=== PATIENT | male | born 1970 | race Caucasian/White ===

== ENCOUNTER 2016-06-29 16:48 | Observation (INO) | payer OTHER ==
[2016-06-29] MEDS ORDERED: NS 1,000 ML IV ONE ×2 (17:08)
[2016-06-29] MEDS ORDERED: ONDANSETRON 4 MG/2 ML VIAL IVP ONE (17:08)
[2016-06-29 17:31] LABS: % IMMATURE GRANULYOCYTES 0.3 % (0.0-1.1); ABSOLUTE IMMATURE GRANULOCYTES 0.05 10^3/uL (0.00-0.10); ADD DIFF? NO; ADD MORPH? NO; ADD SCAN? NO; ATYPICAL LYMPHOCYTE FLAG 0 (0-99); FRAGMENT RBC FLAG 0 (0-99); HEMATOCRIT 41.3 % (40.0-51.0); HEMOGLOBIN 14.7 g/dL (13.7-17.5); LEFT SHIFT FLG 0 (0-99); LIPEMIA HEMOLYSIS FLAG 90 (0-99); MEAN CELL HEMOGLOBIN CONCENTR. 35.6 g/dL (32.4-36.7); MEAN PLATELET VOLUME 10.5 fL (8.7-11.7); PLATELET CLUMPS FLAG 20 (0-99); PLATELET COUNT 208 10^3/uL (150-400); RED BLOOD CELL COUNT 4.59 10^6/uL (4.40-6.38)
[2016-06-29] MEDS ORDERED: IOPAMIDOL (ISOVUE-300) 100 ML BTL ONE (17:31)
[2016-06-29 17:45] LABS: ALANINE AMINOTRANSFERASE 35 IU/L (21-72); ALBUMIN 4.1 g/dL (3.5-5.0); ALKALINE PHOSPHATASE 66 IU/L (38-126); ANION GAP 14 mEq/L (8-16); ASPARTATE AMINOTRANSFERASE 17 IU/L (17-59); BILIRUBIN,TOTAL 0.9 mg/dL (0.1-1.4); BILIRUBIN-CONJUGATED 0.3 mg/dL (0.0-0.5); BILIRUBIN-UNCONJUGATED 0.6 mg/dL (0.0-1.1); CALCIUM 9.9 mg/dL (8.5-10.4); CARBON DIOXIDE 25 mEq/l (22-31); CHLORIDE 102 mEq/L (97-110); GLOMERULAR FILTRATION RATE > 60; GLUCOSE 104 mg/dL (70-100); POTASSIUM 3.7 mEq/L (3.5-5.2); SODIUM 141 mEq/L (134-144); TOTAL PROTEIN 7.2 g/dL (6.3-8.2)
--- NOTE | 2016-06-29 18:02 | EDPHY ---
H & P Constitutional: Initial Vital Signs Temperature (C) 36.9 C 06/29/16 16:50 Heart Rate 90 06/29/16 16:50 Respiratory Rate 20 06/29/16 16:50 Blood Pressure 120/80 06/29/16 16:50 O2 Sat (%) 90 L 06/29/16 16:50 O2 Delivery Mode Room Air O2 (L/minute) 2 Allergies/Adverse Reactions: No Known Allergies Allergy (Unverified 06/29/16 17:22) Home Medications: Medication Instructions Recorded Another Blood Pressure Med 06/29/16 Hydrocodone/APAP 5/325 [[place] 1 - 2 tab PO Q4HRS PRN #30 tab 06/29/16 5/325 (*)] Lisinopril 06/29/16 Magnesium 06/29/16 Medical Decision Making - Diagnostics Imaging Results: Imaging Impressions Abdomen CT 06/29/16 17:18 Impression: 1. Acute appendicitis with appendicolith and thickening up to 14 mm. 2. Nonobstructive left nephrolithiasis. 3. Right renal cysts. 4. No drainable abscess, pneumoperitoneum or bowel obstruction. Findings and recommendations discussed with Emergency Department physician, Isidro Barriga MD at 18:43 hour, 06/29/2016. Final report concurs with initial preliminary interpretation. Imaging: Discussed imaging studies w/ maintenance director Radiologist ED Course/Re-evaluation: CHIEF COMPLAINT: Abdominal pain HISTORY OF PRESENT ILLNESS: This patient is a healthy 45 year old male arriving with his family complaining of worsening lower right quadrant abdominal pain onset this morning around 3: 00am. He states the pain worsened around 12:00pm today following physical work around the house. He endorses associated nausea. He took Pepto-Bismol and Tums with no relief of symptoms. He denies history of abdominal surgery, vomiting, changes in urinary or bowel habits, or other associated symptoms. REVIEW OF SYSTEMS: A 10 point review of systems was performed and is negative with the exception of the elements mentioned in the history of present illness. PHYSICAL EXAM: General Appearance: Alert, well hydrated, appropriate, and non-toxic appearing. Head: Atraumatic without scalp tenderness or obvious injury Eyes: Pupils equal, round, reactive to light and accommodation, EOMI, no trauma , no injection. Ears: Clear bilaterally, no perforation, normal landmarks Nose: Atraumatic, no rhinorrhea, clear. Throat: There is no erythema or exudates, no lesions, normal tonsils, mucus membranes moist. Neck: Supple, 2+ carotid upstroke, non-tender, no lymphadenopathy. Respiratory: No retractions, no distress, no wheezes, and no accessory muscle use. Lungs are clear to auscultation bilaterally. Cardiovascular: Regular rate and rhythm, no murmurs, rubs, or gallops. Bilateral carotid, radial, dorsalis pedis, and posterior tibial pulses intact. Good capillary refill all extremities. Gastrointestinal: Tenderness to lower right quadrant. Abdomen is soft, non- distended with no masses, no rebound, no peritoneal signs. Musculoskeletal: Normal active ROM of all extremities, atraumatic. Neurological: Alert, appropriate, and interactive. The patient has normal DTRs and non-focal cranial nerves, motor, sensory, and cerebellar exam. Skin: No rashes, good turgor, no nodules on palpation. PAST MEDICAL HISTORY: Hypertension, kidney stones PAST SURGICAL HISTORY: Kidney stone extraction SOCIAL HISTORY: Friend at bedside. PCP Dr. Mata. DIFFERENTIAL DIAGNOSIS: The differential diagnosis for the patient's abdominal pain included but was not limited to appendicitis, cholecystitis, hernias, testicular torsion, gastritis, and urinary tract infection. MEDICAL DECISION MAKING: This patient is a 45 year old male arriving with his family complaining or lower right quadrant abdominal pain onset this morning. He has tenderness to the lower right quadrant. Physical exam suspicious for appendicitis. Plan to order CT abdomen. 18:[address] discussed with Dr. Hubbard. Acute appendicitis. 19:[address] Wilkins. Abdominal CT revealed acute appendicitis. The appendix was not perforated. He is not systemically ill. We have administered 1g IV ertapenem. The patient declines pain medication at this time. He [facility] be admitted to [facility] for ongoing management of his appendicitis. He is insisting on going by private vehicle. His father is a physician and his will drive him. He will go straight to [facility] Emergency Department. I have spoken to Dr. Isiah Wilikns and Dr. Maciej Morrison who accept this patient. - Data Points Laboratory Results: Laboratory Results 06/29/16 17:24 06/29/16 17:24 06/29/16 06/29/16 06/29/16 18:43 17:28 17:24 WBC RBC Hgb POC Hgb 14.3 gm/dL L gm/dL (14.5-17.3) Hct POC Hct 42 % L % (42.8-50.6) MCV MCH MCHC RDW Plt Count MPV Neut % (Auto) Lymph % (Auto) [place] % (Auto) Eos % (Auto) Baso % (Auto) Nucleat RBC Rel Count Absolute Neuts (auto) Absolute Lymphs (auto) Absolute Monos (auto) Absolute Eos (auto) Absolute Basos (auto) Absolute Nucleated RBC Immature Gran % Immature Gran # POC Sodium 143 mEq/L mEq/L (134-144) Sodium 141 mEq/L mEq/L (134-144) POC Potassium 3.5 mEq/L mEq/L (3.3-5.0) Potassium 3.7 mEq/L mEq/L (3.5-5.2) POC Chloride 103 mEq/L mEq/L (96-108) Chloride 102 mEq/L mEq/L (97-110) Carbon Dioxide 25 mEq/l mEq/l (22-31) Anion Gap 14 mEq/L mEq/L (8-16) POC BUN 17 mg/dL mg/dL (7-23) BUN 16 mg/dL mg/dL (7-23) Creatinine 1.0 mg/dL mg/dL (0.7-1.3) POC Creatinine 1.1 mg/dL mg/dL (0.8-1.5) Estimated GFR > 60 Glucose 104 mg/dL H mg/dL (70-100) POC Glucose 108 mg/dL H mg/dL (70-100) Calcium 9.9 mg/dL mg/dL (8.5-10.4) Total Bilirubin 0.9 mg/dL mg/dL (0.1-1.4) Conjugated Bilirubin 0.3 mg/dL mg/dL (0.0-0.5) Unconjugated Bilirubin 0.6 mg/dL mg/dL (0.0-1.1) AST 17 IU/L IU/L (17-59) ALT 35 IU/L IU/L (21-72) Alkaline Phosphatase 66 IU/L IU/L (38-126) Total Protein 7.2 g/dL g/dL (6.3-8.2) Albumin 4.1 g/dL g/dL (3.5-5.0) Lipase 69.0 IU/L IU/L (23-300) Urine Color YELLOW Urine Appearance CLEAR Urine pH 6.5 (5.0-7.5) Ur Specific [place] 1.015 (1.002-1.030) Urine Protein NEGATIVE (NEGATIVE) Urine Ketones NEGATIVE (NEGATIVE) Urine Blood NEGATIVE (NEGATIVE) Urine Nitrate NEGATIVE (NEGATIVE) Urine Bilirubin NEGATIVE (NEGATIVE) Urine Urobilinogen 0.2 EU EU (0.2-1.0) Ur Leukocyte Esterase NEGATIVE (NEGATIVE) Urine Glucose NEGATIVE (NEGATIVE) 06/29/16 17:24 WBC 14.83 10^3/uL H 10^3/uL (3.80-9.50) RBC 4.59 10^6/uL 10^6/uL (4.40-6.38) Hgb 14.7 g/dL g/dL (13.7-17.5) POC Hgb Hct 41.3 % % (40.0-51.0) POC Hct MCV 90.0 fL fL (81.5-99.8) MCH 32.0 pg pg (27.9-34.1) MCHC 35.6 g/dL g/dL (32.4-36.7) RDW 12.0 % % (11.5-15.2) Plt Count 208 10^3/uL 10^3/uL (150-400) MPV 10.5 fL fL (8.7-11.7) Neut % (Auto) 86.1 % H % (39.3-74.2) Lymph % (Auto) 8.1 % L % (15.0-45.0) Woodruff % (Auto) 4.5 % % (4.5-13.0) Eos % (Auto) 0.6 % % (0.6-7.6) Baso % (Auto) 0.4 % % (0.3-1.7) Nucleat RBC Rel Count 0.0 % % (0.0-0.2) Absolute Neuts (auto) 12.76 10^3/uL H 10^3/uL (1.70-6.50) Absolute Lymphs (auto) 1.20 10^3/uL 10^3/uL (1.00-3.00) Absolute Monos (auto) 0.67 10^3/uL 10^3/uL (0.30-0.80) Absolute Eos (auto) 0.09 10^3/uL 10^3/uL (0.03-0.40) Absolute Basos (auto) 0.06 10^3/uL 10^3/uL (0.02-0.10) Absolute Nucleated RBC 0.00 10^3/uL 10^3/uL (0-0.01) Immature Gran % 0.3 % % (0.0-1.1) Immature Gran # 0.05 10^3/uL 10^3/uL (0.00-0.10) POC Sodium Sodium POC Potassium Potassium POC Chloride Chloride Carbon Dioxide Anion Gap POC BUN BUN Creatinine POC Creatinine Estimated GFR Glucose POC Glucose Calcium Total Bilirubin Conjugated Bilirubin Unconjugated Bilirubin AST ALT Alkaline Phosphatase Total Protein Albumin Lipase Urine Color Urine Appearance Urine pH Ur Specific [place] Urine Protein Urine Ketones Urine Blood Urine Nitrate Urine Bilirubin Urine Urobilinogen Ur Leukocyte Esterase Urine Glucose Medications Given: Discontinued Medications Hydromorphone HCl (Dilaudid) 0.5 mg IVP EDNOW ONE Stop: 06/29/16 18:56 Last Admin: 06/29/16 19:14 Dose: Not Given Sodium Chloride (Ns) 1,000 mls @ 0 mls/hr IV ONCE ONE PRN Reason: Wide Open Stop: 06/29/16 17:09 Last Admin: 06/29/16 18:50 Dose: 1,000 mls Sodium Chloride (Ns) 1,000 mls @ 0 mls/hr IV ONCE ONE PRN Reason: Wide Open Stop: 06/29/16 17:09 Last Admin: 06/29/16 17:35 Dose: 1,000 mls Ertapenem 1 gm/ Sodium (Chloride) 100 mls @ 200 mls/hr IV EDNOW ONE PRN Reason: Protocol Stop: 06/29/16 19:28 Last Admin: 06/29/16 19:00 Dose: 100 mls Ondansetron HCl (Zofran) 4 mg IVP EDNOW ONE Stop: 06/29/16 17:09 Last Admin: 06/29/16 17:35 Dose: 4 mg Point of Care Test Results: 06/29/16 17:28 POC Sodium 143 POC Potassium 3.5 POC Chloride 103 POC BUN 17 POC Creatinine 1.1 POC Glucose 108 H Departure - Departure Disposition: [facility] Acute Clinical Impression: Acute appendicitis Qualifiers: Acute appendicitis type: unspecified acute appendicitis type Qualified Code(s) : K35.80 - Unspecified acute appendicitis Condition: Fair Additional Instructions: [facility] surgical postop instruction sheet Referrals: Isiah Wilkins MD [Medical Doctor] - Prescriptions: Hydrocodone/APAP 5/325 [[place] 5/325 (*)] 1 - 2 tab PO Q4HRS PRN #30 tab PRN Reason: Pain, Moderate Able To Take Po
[2016-06-29 18:52] LABS: COLOR YELLOW; LEUKOCYTE ESTERASE,URINE NEGATIVE (NEGATIVE); NITRITE,URINE NEGATIVE (NEGATIVE); PH,URINE 6.5 (5.0-7.5)
[2016-06-29] MEDS ORDERED: HYDROmorphONE/DILAUDID 1 MG/ML SYR IVP ONE (18:55)
[2016-06-29] MEDS ORDERED: ERTAPENEM 1 GM in NS 100 ML IV ONE (18:59)
[2016-06-29] MEDS ORDERED: BUPIVACAINE/EPI 0.5% 30 ML SDV ONE (19:18)
[2016-06-29] MEDS ORDERED: fentaNYL 100 MCG/2 ML INJ ONE ×3 (20:34→22:12)
[2016-06-29] MEDS ORDERED: MIDAZOLAM 2 MG/2 ML VIAL ONE (21:09)
[2016-06-29] MEDS ORDERED: PROPOFOL 200 MG/20 ML VIAL ONE (21:12)
[2016-06-29] MEDS ORDERED: KETOROLAC 30 MG/1 ML SDV ONE (21:13)
[2016-06-29] MEDS ORDERED: ONDANSETRON 4 MG/2 ML VIAL ONE (21:13)
[2016-06-29] MEDS ORDERED: LIDOCAINE 2% 5 ML SDV ONE (21:13)
[2016-06-29] MEDS ORDERED: ROCURONIUM 50 MG/5 ML VIAL ONE (21:14)
[2016-06-29] MEDS ORDERED: DEXAMETHASONE 4 MG/ML VIAL ONE ×2 (21:14)
[2016-06-29] MEDS ORDERED: ZOLPIDEM TARTRATE 5 MG TAB PO PRN (21:18)
[2016-06-29] MEDS ORDERED: ONDANSETRON 4 MG/2 ML VIAL IVP PRN (21:18)
[2016-06-29] MEDS ORDERED: HYDROmorphONE/DILAUDID 1 MG/ML SYR IVP PRN (21:18)
--- NOTE | 2016-06-29 21:18 | POSTOPPROG ---
Post Op Note Date of Operation: 06/29/16 Surgeon: Isiah Wilkins Anesthesiologist: Abby Anesthesia: GET(General Endotracheal) Pre-op Diagnosis: Acute appendicitis Post-op Diagnosis: Same Procedure: Lap Appy Findings: suppurative appendix Inf/Abcess present in the surg proc area at time of surgery?: Yes Depth: Organ Space EBL: Minimal Complications: no immediate Specimen(s): appendix
[2016-06-29] MEDS ORDERED: LR 1,000 ML IV SCH (21:30)
--- NOTE | 2016-06-29 21:44 | GHP ---
[f rep st] PREOP HISTORY AND PHYSICAL DATE OF ADMISSION: 06/29/2016 REASON FOR EVALUATION: Acute appendicitis. HISTORY OF PRESENT ILLNESS: 45-year-old healthy male, who awoke from sleep at approximately 3 o'clock this morning with diffuse abdominal pain. The pain progressed throughout the day, bringing him to the emergency room this evening. Associated nausea without emesis. Bowel movements have been soft without diarrhea. No voiding complaints. Car ride was especially uncomfortable over bumps. No prior history of similar complaints. [facility] workup including CT imaging disclosed findings consistent with acute appendicitis. He is referred for definitive management options. PAST MEDICAL HISTORY: Hypertension and nephrolithiasis. PAST SURGICAL HISTORY: Cystoscopy with stone extraction. MEDICATIONS: Lisinopril, vitamin D, garlic, magnesium, combination antihypertensive medicine, uncertain name. ALLERGIES: No known drug allergies. SOCIAL HISTORY: No significant tobacco or alcohol. He is . He has 2 children. 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 FAMILY HISTORY: Noncontributory. REVIEW OF SYSTEMS: Notable for above GI complaints and hematuria. Otherwise, negative 10-point review of systems. PHYSICAL EXAM: VITAL SIGNS: Temperature 36.9, blood pressure 120/90, pulse 77 , respirations 14. GENERAL: The patient is alert, appropriate, pale, uncomfortable. HEENT: Anicteric. NECK: No cervical lymphadenopathy. HEART: Regular. LUNGS: Clear. ABDOMEN: Distended. Significant right lower quadrant tenderness with guarding. No rebound. No Rovsing sign. SKIN: Unremarkable. NEUROLOGIC: Unremarkable. EXTREMITIES: Without swelling. White count 15, hemoglobin 14, platelets of 210. Electrolytes: Sodium 143, potassium 3.5, chloride 103, CO2 of 25, BUN 16, creatinine 1.1. Liver enzymes within reference range. CT of the abdomen and pelvis: Images directly reviewed on PACS. Markedly- dilated appendix measuring approximately 15 mm with appendicolith. No free fluid. No free air. Incidental left nephrolithiasis consistent with his prior history. IMPRESSION: Acute appendicitis. PLAN: Laparoscopic appendectomy. Risks and benefits were explained of bleeding , infection, open conversion, as well as alternative diagnoses. All questions were answered. He desires to proceed. /[id number]/MODL MTDD
--- NOTE | 2016-06-29 22:34 | GOP ---
[f rep st] OPERATIVE REPORT DATE OF OPERATION: 06/29/2016 SURGEON: Isiah Wilkins MD ANESTHESIA: General. ANESTHESIOLOGIST: Dr. Mora. PREOPERATIVE DIAGNOSIS: Acute appendicitis. POSTOPERATIVE DIAGNOSIS: Acute appendicitis. PROCEDURE PERFORMED: Laparoscopic appendectomy. FINDINGS: INDICATIONS: A 45-year-old male with acute appendicitis. He is undergoing a laparoscopic appendect monisha at this time. Risks and benefits were explained of bleeding, infection, open conversion, as wel l as alternative diagnoses. All questions were answered. He desires to proceed. DESCRIPTION OF PROCEDURE: General anesthesia was induced. The abdomen was pre-injected with 0.5% M arcaine with epinephrine. A curvilinear infraumbilical incision was created, and the midline fascia was opened vertically. A 10 mm trocar was placed under direct visualization. The abdomen was insu fflated to 15 mmHg. Two additional 5 mm lower midline ports were inserted. The appendix was acutel y thickened with suppuration without evidence of perforation. The mesoappendix was divided with Alexei brenda Scalpel. The base was transected flush with the cecum with an endoscopic MIKE stapler. The sp ecimen was brought through the umbilical port site using an EndoCatch pouch. Satisfactory hemostasi s was assured. Trocars were removed under direct visualization. The infraumbilical midline fascia was closed with running Vicryl suture. The wounds were closed with Monocryl followed by Dermabond. The patient was taken to recovery uneventfully. /[id number]/MODL
[2016-06-29] MEDS: KETOROLAC 15 MG/1 ML SDV IVP SCH (23:11)
[2016-06-29 23:39] VITALS: RESP 16
[2016-06-30] MEDS: HYDROCODONE/APAP 5/325 TAB PO PRN ×3 (00:03→09:03)
[2016-06-30] MEDS: KETOROLAC 15 MG/1 ML SDV IVP SCH (05:19)
[2016-06-30 06:22] VITALS: BP 99/65; PULSE 52; TEMP 96; O2SAT 98
--- NOTE | 2016-06-30 08:13 | SOAPPROG ---
SOAP Progress Note Assessment/Plan: Assessment:no c/o. min pain. avss. abd soft, incis clean. doing well. home today. Plan: 06/30/16 08:10 Objective: Vital Signs Temp Pulse Resp BP Pulse Ox 35.6 C L 52 L 16 99/65 L 98 06/30/16 05:30 06/30/16 05:30 06/30/16 05:30 06/30/16 05:30 06/30/16 05:30 06/29/16 06/30/16 07/01/16 05:59 05:59 05:59 Intake Total 1000 Output Total 10 Balance 990 ICD10 Worksheet Patient Problems: Problems Problem Status Onset Acute appendicitis Acute
== END 2016-06-30 09:15 | disposition home or self-care (01) ==
LOC: CED 19:55 → F3E 20:40 → FOB 23:00
PROVIDERS: ADMIT Surgery; ATTEND Surgery
PROC: 0DTJ4ZZ Resection of Appendix, Percutaneous Endoscopic Approach (ICD-10-PCS; principal; 2016-06-29 21:21)
DX: K35.80 Unspecified acute appendicitis (principal); I10 Essential (primary) hypertension; Z87.442 Personal history of urinary calculi
CPT/HCPCS: 44970; 74177; C1727; G0378; 80048-PO; 80076-PO; 81003-PO; 82947-QW; 83690-PO; 85025-PO; 96365; J1100; J1170; J1335; J1885; J2250; J2405; J2704; J3010; Q9967